=== PATIENT | female | born 1990 ===

== ENCOUNTER 2022-04-09 03:00 | Emergency (ER) | payer SELFPAY ==
[2022-04-09] MEDS ORDERED: Ondansetron 4 MG/2 ML SDV IVPUSH ONE ×2 (03:13→04:21)
[2022-04-09] MEDS ORDERED: MVI, Adult with Vitamin K 10 ML, Folic Acid 1 MG, Thiamine 100 MG in Lactated Ringers 1... IV ONE ×4 (03:14)
[2022-04-09 03:40] LABS: ANION GAP 14.3 mEq/L (7-13); CHLORIDE,CL 102 mmol/L (98-107); SODIUM,NA 139 mmol/L (136-145)
[2022-04-09 03:45] LABS: ACETAMINOPHEN 0 ug/mL (10-30 (Therapeutic)); ESTIMATED GFR 100 mL/min (>=60)
[2022-04-09 05:22] LABS: AMPHETAMINES,URINE NEGATIVE (NEGATIVE); BARBITURATES,URINE NEGATIVE (NEGATIVE); BENZODIAZEPINE,URINE NEGATIVE (NEGATIVE); MDMA (ECSTASY), URINE NEGATIVE (NEGATIVE); METHADONE,URINE NEGATIVE (NEGATIVE); METHAMPHETAMINES,URINE NEGATIVE (NEGATIVE); OPIATES,URINE NEGATIVE (NEGATIVE); OXYCODONE,URINE NEGATIVE (NEGATIVE); PHENCYCLIDINE,URINE NEGATIVE (NEGATIVE); TCA,URINE NEGATIVE (NEGATIVE)
[2022-04-09] MEDS ORDERED: LORazepam 2 MG/ML SDV IVPUSH ONE (06:38)
== END 2022-04-09 08:52 | disposition home or self-care (01) ==
LOC: DL.ED 03:00
DX: T43.201A Poisoning by unspecified antidepressants, accidental (unintentional), initial encounter (principal); Z79.899 Other long term (current) drug therapy
CPT/HCPCS: 36415; 80053; 80143; 80179; 80305-QW; 80307; 81003; 83605; 83735; 84703; 85025; 93005; 93010; 96361; 96374; 96375; 96376; 99284; 99284-25; J2060; J2405; J3411; J3490; J7120